=== PATIENT | male | born 1960 | race Caucasian/White ===

== ENCOUNTER 2018-10-15 11:06 | Emergency (ER) | payer BC ==
[~2018-10-15] VITALS: Wt 80.0 kg
[~2018-10-15 11:06] MED LIST: ANTA250; ESCI5TAB; TRAZ-111
[2018-10-15 11:11] VITALS: BP 135/67; PULSE 79; RESP 18
--- NOTE | 2018-10-15 11:43 | ERD ---
ER Documentation Chief Complaint Chief Complaint HAS NO RASH, FAVIOLA WAS SPRAYED DUE BED BUGS, WANTS MED CLEARANCE HPI History of Present Illness: Patient reports bedbug infestation to his apartment. Treatment of bedbugs using heat. Patient denies any type of rash or itching. At home pharmacological/nonpharmacological treatment for symptoms: Denies; pt reports he has properly had his property treated for bed bugs Social History: Patient denies tobacco, alcohol, elicit drug use; patient currently taking Antabuse Allergies: NKDA Social Concerns: Denies ROS All systems reviewed and are negative except as per history of present illness. Medications Home Meds Reported Medications Disulfiram (Antabuse) 250 Mg Tablet 06/28/10 Escitalopram Oxalate* (Lexapro*) 5 Mg Tablet 06/28/10 Trazodone Hcl* (Trazodone Hcl*) 50 Mg Tablet 06/28/10 Allergies Allergies: Coded Allergies: No Known Drug Allergies (Verified Allergy, Unknown, 06/28/10) PMhx/Soc History of Surgery: Yes (NOSE SX., PENIS SX.) Anesthesia Reaction: No Hx Neurological Disorder: No Hx Respiratory Disorders: No Hx Cardiac Disorders: No Hx Psychiatric Problems: Yes (SCHIZOPHRENIC) Hx Miscellaneous Medical Probl: No Hx Alcohol Use: Yes Hx Substance Use: Yes Hx Tobacco Use: Yes FmHx Family History: No diabetes Physical Exam Vitals Vital Signs Date Temp Pulse Resp B/P (MAP) Pulse Ox O2 O2 Flow FiO2 Time Delivery Rate 10/15/18 98.1 79 18 135/67 99 11:11 (89) Physical Exam Const: No acute distress, afebrile Head: Atraumatic Eyes: Normal Conjunctiva ENT: Normal External Ears, Nose and Mouth. Neck: Full range of motion. No meningismus. Resp: Clear to auscultation bilaterally Cardio: Regular rate and rhythm, no murmurs Abd: Soft, non tender, non distended. No guarding, no masses, no rigidity Skin: No petechiae or rashes (no skin abnormalities consistent with bedbug bites) Back: No midline or flank tenderness Ext: No cyanosis, or edema Neur: Awake and alert x3, speaking in clear sentences, no focal deficits or facial asymmetry Psych: Normal Mood and Affect Procedures/MDM ED course includes a thorough examination and history. Low suspicion for life threatening medical emergency. Physical exam not consistent with findings of bedbugs. Patient reporting proper use of at home treatments for bedbugs infestation. No respiratory distress, otherwise relatively well appearing and nontoxic. Patient educated on diagnoses, prescriptions, follow-up care, return precautions. Strict return precautions given for worsening condition; questions answered discharge. Disposition for discharge with followup PRN with PCP/clinic if he develops rash, bites, redness, itching.. Departure Diagnosis: Primary Impression: Normal skin exam Condition: Stable Patient Instructions: Bedbugs, Bedbug Bites Referrals: [facility] YOU HAVE RECEIVED A MEDICAL SCREENING EXAM AND THE RESULTS INDICATE THAT YOU DO NOT HAVE A CONDITION THAT REQUIRES URGENT TREATMENT IN THE EMERGENCY DEPARTMENT. FURTHER EVALUATION AND TREATMENT OF YOUR CONDITION CAN WAIT UNTIL YOU ARE SEEN IN YOUR DOCTORS OFFICE WITHIN THE NEXT 1-2 DAYS. IT IS YOUR RESPONSIBILITY TO MAKE AN APPOINTMENT FOR FOLOW-UP CARE. IF YOU HAVE A PRIMARY DOCTOR --you should call your primary doctor and schedule an appointment IF YOU DO NOT HAVE A PRIMARY DOCTOR YOU CAN CALL OUR PHYSICIAN REFERRAL HOTLINE AT IF YOU CAN NOT AFFORD TO SEE A PHYSICIAN YOU CAN CHOSE FROM THE FOLLOWING [facility] [address] [facility]. [place] [address] [facility]. [facility] [address] [facility] [facility] [address] [facility] [address] [facility]. [facility]. [address] [facility]. [facility] YOU HAVE RECEIVED A MEDICAL SCREENING EXAM AND THE RESULTS INDICATE THAT YOU DO NOT HAVE A CONDITION THAT REQUIRES URGENT TREATMENT IN THE EMERGENCY DEPARTMENT. FURTHER EVALUATION AND TREATMENT OF YOUR CONDITION CAN WAIT UNTIL YOU ARE SEEN IN YOUR DOCTORS OFFICE WITHIN THE NEXT 1-2 DAYS. IT IS YOUR RESPONSIBILITY TO MAKE AN APPOINTMENT FOR FOLOW-UP CARE. IF YOU HAVE A PRIMARY DOCTOR --you should call your primary doctor and schedule and appointment IF YOU DO NOT HAVE A PRIMARY DOCTOR YOU CAN CALL OUR PHYSICIAN REFERRAL HOTLINE AT . IF YOU CAN NOT AFFORD TO SEE A PHYSICIAN YOU CAN CHOSE FROM THE FOLLOWING [facility] INSTITUTIONS: [facility] [address] [place] [address] [facility] [address] [place] [address] [facility] [address] [place] [address] Additional Instructions: Return to this facility if you develop rash, itching, red spots on skin; no signs of bed bugs at this time based on history and physical. EVER BUTTERFIELD NP Oct 15, 2018 11:43
== END 2018-10-15 12:16 | disposition home or self-care (01) ==
LOC: FTE 11:06
DX: Z01.89 Encounter for other specified special examinations (principal); Z87.891 Personal history of nicotine dependence
CPT/HCPCS: 99282

== ENCOUNTER 2018-12-24 14:27 | Emergency (ER) | payer BC ==
[~2018-12-24] VITALS: Ht 170.2 cm; Wt 74.4 kg
[2018-12-24 14:38] VITALS: BP 111/74; PULSE 89; RESP 18; Ht 170.2 cm; Wt 74.4 kg
[2018-12-24] MEDS ORDERED: TRIA15CR55 TOP (15:10)
--- NOTE | 2018-12-24 15:13 | ERD ---
ER Documentation Chief Complaint Chief Complaint needs tx for bed bugs, apartment was fumagated HPI 58-year-old male presents requesting clearance for day program. He recently had his dwelling treated for bedbugs. He never had any bug bites, rashes. He denies shortness of breath or any symptoms currently. Patient has a history of schizophrenia. He needs a note to clear him back to day program showing that he does not have contagious disease or is a health threat to other residents. ROS All systems reviewed and are negative except as per history of present illness. Medications Home Meds Active Scripts Triamcinolone Acetonide (Triamcinolone Acetonide) 0.1% - 15 Gm Cream.gm., 1 APPLIC TOP BID, #1 TUB Prov:JUAN CARLOS LEVINE MD 12/24/18 Reported Medications Disulfiram (Antabuse) 250 Mg Tablet 06/28/10 Escitalopram Oxalate* (Lexapro*) 5 Mg Tablet 06/28/10 Trazodone Hcl* (Trazodone Hcl*) 50 Mg Tablet 06/28/10 Allergies Allergies: Coded Allergies: No Known Drug Allergies (Verified Allergy, Unknown, 06/28/10) PMhx/Soc History of Surgery: No Anesthesia Reaction: No Hx Neurological Disorder: No Hx Respiratory Disorders: No Hx Cardiac Disorders: No Hx Psychiatric Problems: No Hx Miscellaneous Medical Probl: No Hx Alcohol Use: No Hx Substance Use: No Hx Tobacco Use: No Smoking Status: Former smoker FmHx Family History: No diabetes, No coronary disease, No other Physical Exam Vitals Vital Signs Date Temp Pulse Resp B/P (MAP) Pulse Ox O2 O2 Flow FiO2 Time Delivery Rate 12/24/18 97.8 89 18 111/74 97 14:38 (86) Physical Exam Const: No acute distress Head: Atraumatic Eyes: Normal Conjunctiva ENT: Normal External Ears, Nose and Mouth. Neck: Full range of motion. No meningismus. Resp: Clear to auscultation bilaterally Cardio: Regular rate and rhythm, no murmurs Abd: Soft, non tender, non distended. Normal bowel sounds Skin: No petechiae or rashes. No visible rashes or skin lesions. Back: No midline or flank tenderness Ext: No cyanosis, or edema Neur: Awake and alert Psych: Normal Mood and Affect Procedures/MDM Patient presents requesting clearance for a psychiatric day program. He has no signs or symptoms of insect bites or infestation and is well-appearing and has essentially normal exam. He will be discharged home with clearance for his day program and return precautions for rashes, fevers, shortness of breath, new or worsening symptoms. The patient was stable with no new complaints during the ER course. Clinically, there is no current evidence to suggest meningitis, sepsis, acute abdomen, pneumonia, stroke, acute coronary syndrome, pulmonary embolism, aortic dissection or any other emergent condition appearing to require further evaluation or hospitalization. Patient counseled regarding my diagnostic impression and care plan. Prior to discharge all questions answered. Pt agrees with treatment plan and understands strict return precautions. Pt is instructed to follow up with primary care provider within 24-48 hours. Precautionary instructions provided including instructions to return to the ER if not improving or for any worsening or changing symptoms or concerns. Disclaimer: Inadvertent spelling and grammatical errors are likely due to EHR/dictation software use and do not reflect on the overall quality of patient care. Also, please note that the electronic time recorded on this note does not necessarily reflect the actual time of the patient encounter. Departure Diagnosis: Primary Impression: Well adult exam Condition: Stable Patient Instructions: Normal Exam, (Child) (Adult) Additional Instructions: No current signs of contagious illness or disease. Okay for day program. JUAN CARLOS LEVINE MD Dec 24, 2018 15:13
== END 2018-12-24 16:43 | disposition home or self-care (01) ==
LOC: FTE 14:27
DX: Z00.00 Encounter for general adult medical examination without abnormal findings (principal); Z87.891 Personal history of nicotine dependence
CPT/HCPCS: 99283

== ENCOUNTER 2019-01-08 07:45 | Day surgery (SDC) | payer BC ==
--- NOTE | 2018-11-20 14:29 | PREAC ---
Date/Time of Note Date/Time of Note DATE: 11/20/18 TIME: 14:28 Anesthesia Eval and Record Evaluation Time Pre-Procedure Interview DATE: 11/20/18 TIME: 14:28 Age 58 Sex male NPO: 8 hrs Preoperative diagnosis . Planned procedure NOSE BASAL CELL EXCISION, FLAP VS GRAFT Past Medical History Past Medical History: None Surgery & Anesthesia Issues No known issue Meds Anticoagulation: No Beta Mckay within 24 hr: No Reason Beta Mckay not given: Pt. not on B-Mckay Reported Medications Disulfiram (Antabuse) 250 Mg Tablet 06/28/10 Escitalopram Oxalate* (Lexapro*) 5 Mg Tablet 06/28/10 Trazodone Hcl* (Trazodone Hcl*) 50 Mg Tablet 06/28/10 Current Medications Sodium Chloride 1,000 ml @ 20 mls/hr Q24H IV ; Start 11/20/18 at 06:00; Stop 11/20/18 at 23:00 Meds reviewed: Yes Allergies Coded Allergies: No Known Drug Allergies (Verified Allergy, Unknown, 06/28/10) Allergies Reviewed: Yes Labs/Studies Labs Reviewed: Reviewed by anesthesiologist test: N/A Pre-procedure Exam Airway: Adequate mouth opening Mallampati: Mallampati II Teeth: Normal Lung: Normal Heart: Normal ASA Physical Status ASA physical status: 2 Emergency: None Planned Anesthetic General/MAC: ETT Pre-operative Attestations Prior to commencing anesthesia and surgery, the patient was re-evaluated, there was verification of: *The patient's identity *The results of appropriate recent lab work and preoperative vital signs *The above evaluation not changing prior to induction *Anesthetic plan, risk benefits, alternative and complications discussed with patient/family; questions answered; patient/family understands, accepts and wishes to proceed. YA MORATAYA November 20, 2018 14:29
[2019-01-07 14:27] VITALS: BMI 25.9
[2019-01-08] VITALS (10 sets, daily range): BP systolic 100–119; BP diastolic 71–90; PULSE 59–70; RESP 10–22; Ht 170.2 cm; Wt 74.4 kg
[~2019-01-08] VITALS: Ht 170.2 cm; Wt 74.4 kg
[~2019-01-08 07:45] MED LIST changes: +SOD CHLORIDE 0.9% 1,000 ML IV SCH; +TRIA15CR55 TOP
[2019-01-08] MEDS ORDERED: DISU500T PO (08:36)
[2019-01-08] MEDS ORDERED: PROP10TA6 PO (08:37)
[2019-01-08] MEDS ORDERED: TRA100 PO (08:37)
[2019-01-08] MEDS ORDERED: PALI117D IM (08:38)
[2019-01-08] MEDS ORDERED: BUPIVACAINE 0.25%/EPI (SDV) 30 ML INJ ONE (11:34)
--- NOTE | 2019-01-08 12:30 | HPN ---
Date/Time of Note Date/Time of Note DATE: 01/08/19 TIME: 12:30 Interval H&P Admission Note Pt. seen H&P reviewed: No system changes GERARDO OSULLIVAN MD Jan 08, 2019 12:30
--- NOTE | 2019-01-08 12:50 | PREAC ---
Date/Time of Note Date/Time of Note DATE: 01/08/19 TIME: 12:48 Anesthesia Eval and Record Evaluation Time Pre-Procedure Interview DATE: 01/08/19 TIME: 12:48 Age 58 Sex male NPO: 8 hrs Preoperative diagnosis Nose Skin Lesion Planned procedure Excision of Nose Lesion Past Medical History Past Medical History: Includes Psych: Other (Schysopherenia) Surgery & Anesthesia Issues No known issue Meds Anticoagulation: No Beta Mckya within 24 hr: No Reason Beta Mckay not given: Pt. not on B-Mckay Reported Medications Paliperidone Palmitate (Invega Sustenna) 117 Mg/0.75 Ml Disp.syrin, 117 MG IM ONCE, SYR 01/08/19 Propranolol Hcl* (Propranolol Hcl*) 10 Mg Tablet, 10 MG PO BID, TAB 01/08/19 Trazodone Hcl* (Trazodone Hcl*) 100 Mg Tablet, 100 MG PO QHS, #30 TAB 01/08/19 Disulfiram (DISULFIRAM) 500 Mg Tablet, 500 MG PO DAILY, TAB 01/08/19 Discontinued Reported Medications Disulfiram (Antabuse) 250 Mg Tablet 06/28/10 Escitalopram Oxalate* (Lexapro*) 5 Mg Tablet 06/28/10 Trazodone Hcl* (Trazodone Hcl*) 50 Mg Tablet 06/28/10 Discontinued Scripts Triamcinolone Acetonide (Triamcinolone Acetonide) 0.1% - 15 Gm Cream.gm., 1 APPLIC TOP BID, #1 TUB Prov:JUAN CARLOS LEVINE MD 12/24/18 Current Medications Acetaminophen/ Hydrocodone Bitart (Bells (5/325)) 1 tab Q4H PRN PO .PAIN 1-3; Start 01/08/19 at 13:00 Morphine Sulfate (morphine) 2 mg ONCE PRN IV .SEVERE PAIN 7-10; Start 01/08/19 at 13:00 Ondansetron HCl (Zofran Inj) 4 mg Q6H PRN IV NAUSEA/VOMITING; Start 01/08/19 at 13:00 Acetaminophen (Tylenol Tab) 325 mg Q4H PRN PO MILD PAIN(1-3)OR ELEVATED TEMP; Start 01/08/19 at 13:00 Meds reviewed: Yes Allergies Coded Allergies: No Known Drug Allergies (Verified Allergy, Unknown, 6/19/19) Allergies Reviewed: Yes Labs/Studies Labs Reviewed: Reviewed by anesthesiologist Result Diagram: 01/08/19 0815 01/08/19 0815 Laboratory Tests 01/08/19 08:15 test: N/A Pre-procedure Exam Last vitals Vital Signs Date Temp Pulse Resp B/P (MAP) Pulse Ox O2 O2 Flow FiO2 Time Delivery Rate 01/08/19 97.7 68 16 100/71 98 Room Air 08:38 (81) Airway: Adequate mouth opening Mallampati: Mallampati II Teeth: Normal Lung: Normal Heart: Normal ASA Physical Status ASA physical status: 2 Emergency: None Planned Anesthetic General/MAC: LMA Pre-operative Attestations Prior to commencing anesthesia and surgery, the patient was re-evaluated, there was verification of: *The patient's identity *The results of appropriate recent lab work and preoperative vital signs *The above evaluation not changing prior to induction *Anesthetic plan, risk benefits, alternative and complications discussed with patient/family; questions answered; patient/family understands, accepts and wishes to proceed. RADHA ALMAGUER MD Jan 08, 2019 12:50
--- NOTE | 2019-01-08 12:56 | OPR ---
Date/Time of Note Date/Time of Note DATE: 01/08/19 TIME: 12:49 Operative Report Free Text/Dictation Plastic Surgery Operative Report Preoperative diagnosis: right ala basal cell Postoperative diagnosis:same Procedure:right ala basal cell excision and full thickness skin graft reconstruction Surgeon:aditi Marinelli.: OBI figueroa Anesthesia:gen EBL:min IV fluids: per flow sheet Findings:n/a Complications: none Dispo:home Indications for procedure:58 yo M presents for excision of a right ala basal cell reconstruction and full thickness skin graft reconstruction. The risks, benefits, alternatives of performing this procedure were discussed with the patient including the risks of bleeding, infection, wound healing problems, distortion of surrounding structures, nerve damage, partial or total graft loss changes in sensation, need for revision, and the patient states that they understand these risks and would like to proceed with the procedure. All questions were answered, no guarantees were given with regards to the outcome of this procedure. Description of procedure: The patient was brought to the operating room at [facility] where general anesthesia was induced. The circumference of the lesion was marked with a marking pen. The skin was prepped with alcohol and then a total of 5cc of 0.25% marcaine with 1:200,000 epinepherine were injected. Next, the patient was prepped and draped in usual sterile fashion. The 15 blade was then used to excise around the circumference of the lesion. This was sent for pathology. A short stitch was placed superior and long stitch was placed lateral. Pathology returned negative. Size of the specimen was 1.5x 2cm. The wound was inspected, and in order to close without tension and avoid distorting the surrounding structures, a full-thickness skin graft was planned. The defect was measured, and then this measurement was transposed onto the right neck. The planned graft was marked. It was injected with 5 cc of 0.25% Marcaine with 1: 200,000 epinephrine. The graft was incised with a 10 blade and was excised with a 10 blade. It was defatted with a iris scissors and was placed onto the nose. It was trimmed to fit. It was then inset with 4-0 chromic sutures and mattressed closed with 4-0 chromic sutures. A bolster dressing was fashioned with Xeroform and this was anchored onto the nose with 3- 0 nylon sutures. The donor site was then closed with 3-0 Vicryl suture and 4-0 Monocryl suture. Graft size was 1.5x 2 cm. Patient tolerated procedure well, there were no complications, follow-up information and wound care instructions were given Preoperative Diagnosis Right and left basal cell carcinoma Postoperative Diagnosis Same Operation/Procedure Performed Excision of right ala basal cell carcinoma and full-thickness skin graft Surgeon see signature line System Architect OBI Figueroa Anesthesia Type: general Estimated Blood Loss: minimal Transfusion none Specimen Right ala basal cell carcinoma Grafts/Implants n full-thickness skin graft one Complications none Pt Condition Post Procedure: stable Procedure Description See dictation GERARDO OSULLIVAN MD Jan 08, 2019 12:56
[2019-01-08] MEDS ORDERED: KETOROLAC 30 MG INJ ONE (12:57)
[2019-01-08] MEDS ORDERED: MIDAZOLAM 1 MG/ML 2 ML INJ ONE (12:57)
[2019-01-08] MEDS ORDERED: PROPOFOL 20 ML ONE (12:57)
[2019-01-08] MEDS ORDERED: ONDANSETRON 4 MG INJ ONE (12:57)
[2019-01-08] MEDS ORDERED: CEFAZOLIN 1 GM INJ ONE (12:59)
[2019-01-08] MEDS ORDERED: ACETAMINOPHEN 325 MG TAB PO PRN (13:00)
[2019-01-08] MEDS ORDERED: morphine 2 MG INJ IV PRN (13:00)
[2019-01-08] MEDS ORDERED: ONDANSETRON 4 MG INJ IV PRN ×2 (13:00→13:30)
[2019-01-08] MEDS ORDERED: HYDROCODONE/APAP (5/325) TAB PO PRN (13:00)
[2019-01-08] MEDS ORDERED: OXYCODONE/ACETAMINOPHEN (5/325) TAB PO PRN (13:30)
[2019-01-08] MEDS ORDERED: HYDROmorphONE 1 MG/5 ML IV SYRINGE IV PRN (13:30)
[2019-01-08] MEDS ORDERED: FENTAnyl 50 MCG/ML VIAL IV PRN (13:30)
--- NOTE | 2019-01-08 14:03 | PAC ---
Date/Time of Note Date/Time of Note DATE: 01/08/19 TIME: 14:03 Post-Anesthesia Notes Post-Anesthesia Note Last documented vital signs Vital Signs Date Temp Pulse Resp B/P (MAP) Pulse Ox O2 O2 Flow FiO2 Time Delivery Rate 01/08/19 97.7 68 16 100/71 98 Room Air 08:38 (81) Activity: WNL Respiratory function: WNL Cardiovascular function: WNL Mental status: Baseline Pain reasonably controlled: Yes Hydration appropriate: Yes Nausea/Vomiting absent: Yes RADHA ALMAGUER MD Jan 08, 2019 14:03
== END 2019-01-08 15:28 | disposition home or self-care (01) ==
LOC: SDS 07:45
PROVIDERS: ATTEND Surgery Plastic and Reconstructive Surgery
DX: C44.311 Basal cell carcinoma of skin of nose (principal)
CPT/HCPCS: 11644; 15260; 80053; 85025; 85610; 85730; 88305; 88331; J0690; J1885; J2250; J2405; J3010; Z7512; Z7610